=== PATIENT | male | born 1965 | race Caucasian/White ===

== ENCOUNTER 2019-03-23 06:36 | Observation (INO) | payer SELFPAY ==
[2019-03-23] MEDS ORDERED: Ondansetron 4 MG/2 ML SDV IVPUSH ONE ×2 (06:44→08:48)
[2019-03-23] MEDS ORDERED: Sodium Chloride 0.9% 1,000 ML IV ONE ×2 (06:49)
--- NOTE | 2019-03-23 06:52 | EDM.PDOC ---
<Bambi Talbot - Last Filed: 03/23/19 06:45> ED HPI GENERAL MEDICAL PROBLEM - General Chief Complaint: Drug or Alcohol Abuse Stated Complaint: SUICIDAL Time Seen by Provider: 03/23/19 06:46 Source of Information: Reports: Patient, EMS History Limitations: Reports: No Limitations - History of Present Illness INITIAL COMMENTS - FREE TEXT/NARRATIVE: HISTORY OF PRESENT ILLNESS: Patient is a 53-year-old male who presents the ER via EMS status post overdose. Approximately 2 and half hours prior to arrival, patient took 56 tablets of Zoloft 100 mg along with 1/2 pint of whiskey in a suicide attempt. Patient has a history of suicide attempt in the past- the last one being 3 months ago. He has had 5 attempts the last 3 years. Tomorrow he has a phone court date for a divorce. Patient told EMS that if he is discharged he plans to "find the first truck to jump in front of." He admits to auditory hallucinations: Voices telling him to "quit living." Denies any visual hallucinations. No homicidal ideation. States he feels warm and has had nausea and 2 episodes of nonbloody nonbilious emesis since the overdose. Denies any abdominal pain. No chest pain. Has mild dyspnea. No weakness or paresthesias. No syncope. Denies any other coingestions aside from the above. REVIEW OF SYSTEMS: Other than the symptoms associated with the present events, the following is reported with regard to recent health: General: (-) fever. HENT: (-) congestion. Respiratory: (-) cough. Cardiovascular: (-) chest pain. GI: (-) abdominal pain. (+) n/v : (-) urinary complaints. Musculoskeletal: (-) other aches or pains. Endocrine: (-) generalized weakness. Neurological: (-) localized weakness. Skin: (-) rash Psych: (+) suicidal (-) HI (+) AH (-) VH PAST MEDICAL HISTORY: reviewed as per nursing notes SOCIAL HISTORY: reviewed as per nursing notes, MEDICATIONS: Per nurse's note ALLERGIES: Per nurse's note, reviewed by me PHYSICAL EXAMINATION: GENERALIZED APPEARANCE: well developed, well nourished in no distress VITAL SIGNS: Per nurse's note, reviewed by me SKIN: Warm, dry; (-) cyanosis; (-) rash. HEAD: (-) scalp swelling, (-) tenderness. EYES: (-) conjunctival pallor, (-) scleral icterus. ENMT: (-) stridor; mucous membranes moist. NECK: (-) tenderness, (-) stiffness, CHEST AND RESPIRATORY: (-) rales, (-) rhonchi, (-) wheezes; breath sounds equal bilaterally. HEART AND CARDIOVASCULAR: (-) irregularity; (-) murmur, (-) gallop. ABDOMEN AND GI: Soft; (-) tenderness, (-) guarding, (-) rebound, (-) palpable masses, EXTREMITIES: (-) deformity, (-) edema. NEURO AND PSYCH: Alert. Cranial nerves grossly intact; strength symmetric. gait steady DIAGNOSTICS: EKG: sr at [address] elevation or depression CBC, CMP, UDS, salicylate, Acetaminophen level, INR/PT/PTT, EtOH, CPK ordered EMERGENCY DEPARTMENT COURSE AND TREATMENT: Patient seen immediately upon arrival and required my immediate medical attention. Report given by EMS. Orders written. Poison Control contacted. Given IVF and Zofran. Care transferred to Dr. Jacobo at 0700 pending labs and admission. - Related Data Allergies Allergy/AdvReac Type Severity Reaction Status Date / Time No Known Allergies Allergy Verified 03/23/19 06:37 Home Meds: Home Meds Prazosin HCl [Prazosin] 2 mg PO BEDTIME 03/23/19 [History] QUEtiapine [SEROquel] 200 mg PO BEDTIME 03/23/19 [History] Sertraline HCl 100 mg PO BEDTIME 03/23/19 [History] hydrOXYzine pamoate [Hydroxyzine Pamoate] 25 mg PO ASDIRECTED 03/23/19 [History] ED ROS GENERAL - Review of Systems Review Of Systems: See Below (see dictation) ED EXAM, GENERAL - Physical Exam Exam: See Below (see dictation) Course - Vital Signs Last Recorded V/S: Last Vital Signs Temp 98.4 F 03/23/19 06:40 Pulse 80 03/23/19 06:40 Resp 16 03/23/19 06:40 BP 178/104 H 03/23/19 06:40 Pulse Ox 95 03/23/19 06:40 - Orders/Labs/Meds Orders: Active Orders 24 hr Category Date Time Status EKG Documentation Completion [RC] STAT Care 03/23/19 06:40 Active DRUG SCREEN, URINE [URCHEM] Stat Lab 03/23/19 06:42 Ordered UA RFX TOPHER AND CULT IF INDIC [URIN] Stat Lab 03/23/19 06:41 Ordered Labs: Laboratory Tests 03/23/19 03/23/19 03/23/19 Range/Units 07:30 07:30 07:30 WBC 8.44 (4.0-11.0) K/uL RBC 4.56 (4.50-5.90) M/uL Hgb 15.0 (13.0-17.0) g/dL Hct 43.4 (38.0-50.0) % MCV 95.2 (80.0-98.0) fL MCH 32.9 H (27.0-32.0) pg MCHC 34.6 (31.0-37.0) g/dL RDW Std Deviation 47.7 (28.0-62.0) fl RDW Coeff of Yung 14 (11.0-15.0) % Plt Count 244 (150-400) K/uL MPV 10.10 (7.40-12.00) fL Neut % (Auto) 82.9 H (48.0-80.0) % Lymph % (Auto) 12.0 L (16.0-40.0) % [place] % (Auto) 4.1 (0.0-15.0) % Eos % (Auto) 0.2 (0.0-7.0) % Baso % (Auto) 0.8 (0.0-1.5) % Neut # (Auto) 7.0 H (1.4-5.7) K/uL Lymph # (Auto) 1.0 (0.6-2.4) K/uL [place] # (Auto) 0.4 (0.0-0.8) K/uL Eos # (Auto) 0.0 (0.0-0.7) K/uL Baso # (Auto) 0.1 (0.0-0.1) K/uL Nucleated RBC % 0.0 /100WBC Nucleated RBCs # 0 K/uL INR 0.99 Sodium 144 (136-148) mmol/L Potassium 3.9 (3.5-5.1) mmol/L Chloride 106 (98-107) mmol/L Carbon Dioxide 23.4 (21.0-32.0) mmol/L BUN 9 (7.0-18.0) mg/dL Creatinine 0.9 (0.8-1.3) mg/dL Est Cr Clr Drug Dosing 78.57 mL/min Estimated GFR (MDRD) > 60.0 ml/min Glucose 83 (74-106) mg/dL Calcium 8.5 (8.5-10.1) mg/dL Total Bilirubin 0.4 (0.2-1.0) mg/dL AST 24 (15-37) IU/L ALT 21 (14-63) IU/L Alkaline Phosphatase 77 (46-116) U/L Creatine Kinase 66 (26-308) U/L Total Protein 7.1 (6.4-8.2) g/dL Albumin 3.7 (3.4-5.0) g/dL Globulin 3.4 (2.6-4.0) g/dL Albumin/Globulin Ratio 1.1 (0.9-1.6) Salicylates 4.5 (0-20) mg/dL Acetaminophen <2.0 ug/mL Ethyl Alcohol 174 mg/dL Meds: Medications Discontinued Medications Generic Name Dose Route Start Last Admin Trade Name Freq PRN Reason Stop Dose Admin Sodium Chloride 1,000 mls @ 999 mls/hr 03/23/19 06:49 03/23/19 06:51 Normal Saline IV 03/23/19 07:49 999 mls/hr .Bolus ONE Administration Sodium Chloride 1,000 mls @ 999 mls/hr 03/23/19 06:49 Normal Saline IV 03/23/19 07:49 .BOLUS ONE Ondansetron HCl 4 mg 03/23/19 06:44 03/23/19 06:51 Zofran IVPUSH 03/23/19 06:45 4 mg ONETIME ONE Administration Departure - Departure Disposition: Refer to Observation Clinical Impression: Suicide attempt, Overdose - Discharge Information Forms: ED Department Discharge Sepsis Event Note - Focused Exam Vital Signs: Vital Signs Temp Pulse Resp BP Pulse Ox 03/23/19 06:40 98.4 F 80 16 178/104 H 95 <Diogenes Gonsales - Last Filed: 03/23/19 08:49> Departure - Departure Time of Disposition: 08:48 Sepsis Event Note - Focused Exam Date Exam was Performed: 03/23/19 Time Exam was Performed: 08:48
[2019-03-23 08:20] LABS: ACETAMINOPHEN <2.0 ug/mL; BLOOD UREA NITROGEN,BUN 9 mg/dL (7.0-18.0); CARBON DIOXIDE,CO2 23.4 mmol/L (21.0-32.0); CHLORIDE,CL 106 mmol/L (98-107); GLUCOSE RANDOM 83 mg/dL (74-106); POTASSIUM,K 3.9 mmol/L (3.5-5.1); SODIUM,NA 144 mmol/L (136-148)
[2019-03-23] MEDS ORDERED: Acetaminophen 325 MG Tab PO PRN (10:40)
[2019-03-23] MEDS ORDERED: LORazepam 0.5 MG Tab PO PRN (10:40)
--- NOTE | 2019-03-23 10:51 | PCM.HP.2 ---
H&P History of Present Illness - General Date of Service: 03/23/19 Admit Problem/Dx: Admission Diagnosis/Problem Admission Diagnosis/Problem Drug overdose Source of Information: Patient History Limitations: Reports: No Limitations - History of Present Illness Initial Comments - Free Text/Narative: This 53 year old male with pmh of multiple suicide attempts in the last 5 years , last was 3 months ago, anxiety, depression, and PTSD presented to the ED via EMS after taking 56 tabs of Zoloft and drinking approximately 1/2 pint Whiskey. He vomited x 2 non blood emesis at home and has been nauseated in the ED. He reports he was release from [facility] [place] 3 months ago for similar suicide attempt. He reports he is having auditroy hallucinations, in which these voices are telling him to kill himself and to "quit living". He states "If you let me go home, I will . I will throw myself in front of a fucking truck to kill myself." Reports drinking alcohol twice weekly, if that. 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 In the ED labwork WNL. ETOH level 174. Drug screen pending. BP slightly elevated 140-170/90-100. No tachycardia noted. Poison control called in ED, noted to monitor for hypertension and tachycardia, Ativan PRN for these, monitor for 8 hours, peak of medication. Will be admitted for monitoring until medically stable for transfer to psychiatric facility. - Related Data Allergies/Adverse Reactions: Allergies Allergy/AdvReac Type Severity Reaction Status Date / Time No Known Allergies Allergy Verified 03/23/19 06:37 Home Medications: Home Meds Prazosin HCl [Prazosin] 2 mg PO BEDTIME 03/23/19 [History] QUEtiapine [SEROquel] 200 mg PO BEDTIME 03/23/19 [History] Sertraline HCl 100 mg PO BEDTIME 03/23/19 [History] hydrOXYzine pamoate [Hydroxyzine Pamoate] 25 mg PO ASDIRECTED 03/23/19 [History] Past Medical History HEENT History: Reports: None Cardiovascular History: Reports: None Respiratory History: Reports: None Genitourinary History: Reports: None Musculoskeletal History: Reports: Back Pain, Chronic Neurological History: Reports: None Psychiatric History: Reports: Depression, PTSD Endocrine/Metabolic History: Reports: None Hematologic History: Reports: None Dermatologic History: Reports: None - Infectious Disease History Infectious Disease History: Reports: Chicken Pox - Past Surgical History Other GI Surgeries/Procedures: Patient reports abdominal surgery when a child Other Musculoskeletal Surgeries/Procedures:: Patient reports back surgery Social & Family History - Family History Family Medical History: Noncontributory - Tobacco Use Smoking Status *Q: Current Every Day Smoker Years of Tobacco use: 40 Packs/Tins Daily: 1 - Recreational Drug Use Recreational Drug Use: Yes Drug Use in Last 12 Months: Yes H&P Review of Systems - Review of Systems: Review Of Systems: See Below General: Reports: No Symptoms. Denies: Fever, Chills, Malaise HEENT: Reports: No Symptoms. Denies: Headaches, Sinus Congestion, Sore Throat Pulmonary: Reports: No Symptoms. Denies: Shortness of Breath Cardiovascular: Reports: No Symptoms. Denies: Chest Pain Gastrointestinal: Reports: Nausea, Vomiting. Denies: Abdominal Pain, Black Stool, Bloody Stool Genitourinary: Reports: No Symptoms. Denies: Dysuria, Frequency Psychiatric: Reports: Anxiety, Suicidal Ideation, Hallucinations (Auditory) Neurological: Reports: No Symptoms Hematologic/Lymphatic: Reports: No Symptoms Immunologic: Reports: No Symptoms Exam - Exam Exam: See Below - Vital Signs Vital Signs: Last Vital Signs Temp 98.4 F 03/23/19 06:40 Pulse 80 03/23/19 10:00 Resp 20 03/23/19 10:00 BP 152/98 H 03/23/19 10:00 Pulse Ox 94 L 03/23/19 10:00 Weight: 60.328 kg - Exam General: Alert, Oriented, Cooperative Lungs: Clear to Auscultation, Normal Respiratory Effort Cardiovascular: Regular Rate, Regular Rhythm GI/Abdominal Exam: Normal Bowel Sounds, Soft, Non-Tender Extremities: Normal Inspection, Normal Range of Motion, Non-Tender Neuro Extensive - Mental Status: Alert, Oriented x3 Neuro Extensive - Motor, Sensory, Reflexes: CN II-XII Intact Psychiatric: Anxious, Suicidal Ideation - Patient Data Lab Results Last 24 hrs: Laboratory Results - last 24 hr 03/23/19 03/23/19 03/23/19 Range/Units 07:30 07:30 07:30 WBC 8.44 (4.0-11.0) K/uL RBC 4.56 (4.50-5.90) M/uL Hgb 15.0 (13.0-17.0) g/dL Hct 43.4 (38.0-50.0) % MCV 95.2 (80.0-98.0) fL MCH 32.9 H (27.0-32.0) pg MCHC 34.6 (31.0-37.0) g/dL RDW Std Deviation 47.7 (28.0-62.0) fl RDW Coeff of Yung 14 (11.0-15.0) % Plt Count 244 (150-400) K/uL MPV 10.10 (7.40-12.00) fL Neut % (Auto) 82.9 H (48.0-80.0) % Lymph % (Auto) 12.0 L (16.0-40.0) % [place] % (Auto) 4.1 (0.0-15.0) % Eos % (Auto) 0.2 (0.0-7.0) % Baso % (Auto) 0.8 (0.0-1.5) % Neut # (Auto) 7.0 H (1.4-5.7) K/uL Lymph # (Auto) 1.0 (0.6-2.4) K/uL [place] # (Auto) 0.4 (0.0-0.8) K/uL Eos # (Auto) 0.0 (0.0-0.7) K/uL Baso # (Auto) 0.1 (0.0-0.1) K/uL Nucleated RBC % 0.0 /100WBC Nucleated RBCs # 0 K/uL INR 0.99 Sodium 144 (136-148) mmol/L Potassium 3.9 (3.5-5.1) mmol/L Chloride 106 (98-107) mmol/L Carbon Dioxide 23.4 (21.0-32.0) mmol/L BUN 9 (7.0-18.0) mg/dL Creatinine 0.9 (0.8-1.3) mg/dL Est Cr Clr Drug Dosing 78.57 mL/min Estimated GFR (MDRD) > 60.0 ml/min Glucose 83 (74-106) mg/dL Calcium 8.5 (8.5-10.1) mg/dL Total Bilirubin 0.4 (0.2-1.0) mg/dL AST 24 (15-37) IU/L ALT 21 (14-63) IU/L Alkaline Phosphatase 77 (46-116) U/L Creatine Kinase 66 (26-308) U/L Total Protein 7.1 (6.4-8.2) g/dL Albumin 3.7 (3.4-5.0) g/dL Globulin 3.4 (2.6-4.0) g/dL Albumin/Globulin Ratio 1.1 (0.9-1.6) Salicylates 4.5 (0-20) mg/dL Acetaminophen <2.0 ug/mL Ethyl Alcohol 174 mg/dL 03/23/19 Range/Units 09:26 WBC (4.0-11.0) K/uL RBC (4.50-5.90) M/uL Hgb (13.0-17.0) g/dL Hct (38.0-50.0) % MCV (80.0-98.0) fL MCH (27.0-32.0) pg MCHC (31.0-37.0) g/dL RDW Std Deviation (28.0-62.0) fl RDW Coeff of [place]ung (11.0-15.0) % Plt Count (150-400) K/uL MPV (7.40-12.00) fL Neut % (Auto) (48.0-80.0) % Lymph % (Auto) (16.0-40.0) % [place] % (Auto) (0.0-15.0) % Eos % (Auto) (0.0-7.0) % Baso % (Auto) (0.0-1.5) % Neut # (Auto) (1.4-5.7) K/uL Lymph # (Auto) (0.6-2.4) K/uL [place] # (Auto) (0.0-0.8) K/uL Eos # (Auto) (0.0-0.7) K/uL Baso # (Auto) (0.0-0.1) K/uL Nucleated RBC % /100WBC Nucleated RBCs # K/uL INR Sodium (136-148) mmol/L Potassium (3.5-5.1) mmol/L Chloride (98-107) mmol/L Carbon Dioxide (21.0-32.0) mmol/L BUN (7.0-18.0) mg/dL Creatinine (0.8-1.3) mg/dL Est Cr Clr Drug Dosing mL/min Estimated GFR (MDRD) ml/min Glucose (74-106) mg/dL Calcium (8.5-10.1) mg/dL Total Bilirubin (0.2-1.0) mg/dL AST (15-37) IU/L ALT (14-63) IU/L Alkaline Phosphatase (46-116) U/L Creatine Kinase (26-308) U/L Total Protein (6.4-8.2) g/dL Albumin (3.4-5.0) g/dL Globulin (2.6-4.0) g/dL Albumin/Globulin Ratio (0.9-1.6) Salicylates 4.0 (0-20) mg/dL Acetaminophen ug/mL Ethyl Alcohol mg/dL Result Diagrams: 03/23/19 07:30 03/23/19 07:30 Sepsis Event Note - Evaluation Sepsis Screening Result: No Definite Risk - Focused Exam Vital Signs: Vital Signs Temp Pulse Resp BP Pulse Ox 03/23/19 10:00 80 20 152/98 H 94 L 03/23/19 08:58 77 16 148/94 H 94 L 03/23/19 06:40 98.4 F 80 16 178/104 H 95 Date Exam was Performed: 03/23/19 Time Exam was Performed: 14:46 - Problem List (1) Suicide attempt SNOMED Code(s): 45698949 ICD Code: T14.91XA - SUICIDE ATTEMPT, INITIAL ENCOUNTER Status: Acute Current Visit: Yes (2) Overdose SNOMED Code(s): 82197247 ICD Code: T50.901A - POISONING BY UNSP DRUG/MEDS/BIOL SUBST, ACCIDENTAL, INIT Status: Acute Current Visit: Yes Qualifiers: Encounter type: initial encounter Injury intent: intentional self-harm Qualified Code(s): T50.902A - Poisoning by unspecified drugs, medicaments and biological substances, intentional self-harm, initial encounter (3) Anxiety and depression SNOMED Code(s): 290644159 ICD Code: F41.9 - ANXIETY DISORDER, UNSPECIFIED; F32.9 - MAJOR DEPRESSIVE DISORDER, SINGLE EPISODE, UNSPECIFIED Status: Chronic Current Visit: Yes (4) PTSD (post-traumatic stress disorder) SNOMED Code(s): 78309691 ICD Code: F43.10 - POST-TRAUMATIC STRESS DISORDER, UNSPECIFIED Status: Chronic Current Visit: Yes (5) History of suicidal tendencies SNOMED Code(s): 083699605 ICD Code: Z91.89 - OTH PERSONAL RISK FACTORS, NOT ELSEWHERE CLASSIFIED Status: Chronic Current Visit: Yes Problem List Initiated/Reviewed/Updated: Yes Orders Last 24hrs: Active Orders 24 hr Category Date Time Status Admission Status [Patient Status] [ADT] Stat ADT 03/23/19 09:06 Active CIWAA Assessment [RC] Q4H Care 03/23/19 10:40 Active Cardiac Monitoring [RC] . DIRECTED Care 03/23/19 09:06 Active Communication Order [RC] ROUTINE Care 03/23/19 10:25 Active EKG Documentation Completion [RC] STAT Care 03/23/19 06:40 Active Intake and Output [RC] QSHIFT Care 03/23/19 10:41 Active Oxygen Therapy [RC] PRN Care 03/23/19 10:40 Active Telemetry Monitoring [Cardiac Monitoring] [RC] . Care 03/23/19 10:29 Active DIRECTED Up With Assistance [RC] ASDIRECTED Care 03/23/19 10:40 Active VTE/DVT Education [RC] PER UNIT ROUTINE Care 03/23/19 10:40 Active Vital Signs [RC] Q4H Care 03/23/19 10:40 Active Regular Diet [DIET] Diet 03/23/19 Lunch Active DRUG SCREEN, URINE [URCHEM] Stat Lab 03/23/19 06:42 Ordered UA RFX TOPHER AND CULT IF INDIC [URIN] Stat Lab 03/23/19 06:41 Ordered Acetaminophen [Tylenol] Med 03/23/19 10:40 Ordered 650 mg PO Q4H PRN LORazepam [Ativan] Med 03/23/19 10:40 Ordered See Protocol IVPUSH Q4H PRN LORazepam [Ativan] Med 03/23/19 10:40 Ordered See Protocol PO Q4H PRN Ondansetron [Zofran] Med 03/23/19 10:40 Ordered 4 mg IVPUSH Q4H PRN Sodium Chloride 0.9% [Normal Saline] 1,000 ml Med 03/23/19 10:45 Ordered IV Q10H Resuscitation Status Routine Resus Stat 03/23/19 10:40 Ordered Medication Orders Acetaminophen (Tylenol) 650 mg PO Q4H PRN PRN Reason: Pain (mild 1-3) Sodium Chloride (Normal Saline) 1,000 mls @ 100 mls/hr IV Q10H SISI Lorazepam (Ativan) 0 mg IVPUSH Q4H PRN; Protocol PRN Reason: CIWAA Lorazepam (Ativan) 0 mg PO Q4H PRN; Protocol PRN Reason: CIWAA Ondansetron HCl (Zofran) 4 mg IVPUSH Q4H PRN PRN Reason: Nausea Assessment/Plan Comment:: This 53 year old male admitted with suicide attempt by overdose 1. Overdose: intentionally trying to end his life. Reports he continues to have thoughts of self harm as he is hearing voices that are telling him to end his life. Scared to go home. Monitor per Poison control recommendations. After 8 hours since ingestion, will attempt to find psychiatric placement and transfer. IVFs 100 mls/hr, try Compazine x 1 for nausea. Ok to eat and drink. Monitor on Telemetry. Nicotine patch. Ativan per CIWAA protocol PRN. Discharge Plan: Patient has been stable on the floor, no signs of serotonin syndrome. VS stable. Attempted to transfer to [place], no psychiatric bed availability. Called Dr Rona Torres kindly accepted patient for direct admission to psychiatric unit for mood disorder and suicidal ideation. He recommended Ativan for transfer, will give 1 mg now. I will give 1 mg prior to transfer. He also request emergency hold to be placed for transfer as patient is actively suicidal. Nursing will contact EMS for transfer, ground ambulance to transfer patient when available. - Mortality Measure Prognosis:: Good
[2019-03-23] MEDS ORDERED: Prochlorperazine 10 MG/2 ML SDV IVPUSH ONE (11:11)
[2019-03-23] MEDS: Sodium Chloride 0.9% 1,000 ML IV SCH ×2 (11:23→21:31)
[2019-03-23] MEDS: Ondansetron 4 MG/2 ML SDV IVPUSH PRN ×2 (11:24→21:04)
[2019-03-23] MEDS: Nicotine 7 MG/24 Hr Patch TRDERM SCH (11:24)
[2019-03-23] MEDS ORDERED: LORazepam 2 MG/ML SDV IVPUSH ONE ×2 (13:50→14:16)
[2019-03-23] MEDS: LORazepam 2 MG/ML SDV IVPUSH PRN ×2 (15:44→23:21)
[2019-03-24] MEDS: Ondansetron 4 MG/2 ML SDV IVPUSH PRN ×2 (02:32→08:36)
[2019-03-24] MEDS: Nicotine 7 MG/24 Hr Patch TRDERM SCH (08:40)
[2019-03-24] MEDS: Sodium Chloride 0.9% 1,000 ML IV SCH (08:43)
[2019-03-24] MEDS ORDERED: LORazepam 2 MG/ML SDV IVPUSH ONE (08:45)
--- NOTE | 2019-03-24 09:18 | PCM.SN ---
- Free Text/Narrative Note: Patient stable, EMS to be here this morning for transfer to [facility] [place]. No chest pain or SOB. Still slightly nauseated and confirms hearing voices. Nursing state he has been talking to himself throughout the night.
== END 2019-03-24 09:10 ==
LOC: MW.ED 06:36 → MW.MS 09:06 → UNDOADMOB 09:31 → MW.MS 09:31
PROVIDERS: ADMIT Internal Medicine; ATTEND Internal Medicine
DX: T43.222A Poisoning by selective serotonin reuptake inhibitors, intentional self-harm, initial encounter (principal); R11.2 Nausea with vomiting, unspecified; F32.9 Major depressive disorder, single episode, unspecified; F41.9 Anxiety disorder, unspecified; F43.10 Post-traumatic stress disorder, unspecified; F17.210 Nicotine dependence, cigarettes, uncomplicated; Z79.899 Other long term (current) drug therapy
CPT/HCPCS: 36415; 80053; 80305; 80320; 80329; 81001; 82550; 85025; 85610; 93005; 96361; 96374; 96375; 96376; 99285; A9270; G0378; J0780; J2060; J2405; J7030; 99284; G0480